=== PATIENT | female | born 1940 | race African-American/Black ===

== ENCOUNTER 2016-04-19 17:18 | Emergency (ER) | payer MEDICARE ==
[~2016-04-19] VITALS: Ht 165.1 cm; Wt 72.6 kg
[~2016-04-19 17:18] MED LIST: NAPR500T PO; TRAM-29 PO
[2016-04-19] MEDS ORDERED: KETOROLAC TROMETHAMINE 30 MG/ML SYRINGE. IV ONE (19:00)
--- NOTE | 2016-04-19 19:16 | PHYS DOC ---
Past Medical History Past Medical History: Arthritis, Hypertension Past Surgical History: Hysterectomy Alcohol Use: None Drug Use: None Adult General Chief Complaint Chief Complaint: WEAKNESS/GENERALIZED HPI HPI Patient is a 76 year old female brought to the ED by her daughter from the shelter home where she lives with several complaints. She's been sick for 1- 2 days. She's had generalized weakness. She has a headache which is unusual for her. Her head hurt on the right side of her head and down into her right ear. She denies cough, nausea or vomiting, diarrhea. She denies any recent head injury. She does not take blood thinners. She is in good general health. Her primary care doctor is Anshu Martinez. Review of Systems Review of Systems Constitutional: Gen. malaise and weakness, she was not aware that she had a fever Eyes: Denies change in visual acuity, redness, or eye pain [] HENT: Denies nasal congestion or sore throat , complains of right ear pain that is better now Respiratory: Denies cough or shortness of breath [] Cardiovascular: Denies chest pain GI: Denies abdominal pain, nausea, vomiting, bloody stools or diarrhea [] : Denies dysuria or hematuria [] Musculoskeletal: Denies back pain or joint pain [] Integument: Denies rash or skin lesions [] Neurologic: As in history of present illness Current Medications Current Medications Current Medications Medications (Trade) Dose Ordered Sig/Fox Start Time Stop Time Status Last Admin Dose Admin Ketorolac Tromethamine (Toradol) 30 mg 1X ONCE 04/19/16 19:00 04/19/16 19:01 DC 04/19/16 19:31 30 MG Oseltamivir Phosphate (Tamiflu) 75 mg 1X STAT 04/19/16 20:19 04/19/16 20:22 DC 04/19/16 20:49 75 MG Allergies Allergies Allergies Coded Allergies Type Severity Reaction Last Updated Verified No Known Drug Allergies 01/31/14 No Physical Exam Physical Exam Constitutional: Well developed, well nourished, no acute distress, non-toxic appearance. Alert, mentating normally. Temp 100.2. HENT: Normocephalic, atraumatic, bilateral external ears normal, bilateral TMs without redness or bulging, nose normal. [] Eyes: conjunctiva normal, no discharge. [] Neck: Normal range of motion, no stridor. [] Cardiovascular:Heart rate regular rhythm, no murmur [] Lungs & Thorax: Bilateral breath sounds clear to auscultation [] Abdomen: Bowel sounds normal, soft, no tenderness, no masses, no pulsatile masses. [] Skin: Warm, dry, no erythema, no rash. [] Extremities: No tenderness, no cyanosis, no clubbing, ROM intact, no edema. [] Neurologic: Alert and oriented X 3, normal motor function, normal sensory function, no focal deficits noted. [] Current Patient Data Vital Signs Vital Signs Date Time Temp Pulse Resp B/P Pulse Ox O2 Delivery O2 Flow Rate FiO2 04/19/16 20:45 88 16 138/76 97 Room Air 04/19/16 18:47 100.2 100.2 Lab Values Laboratory Tests Test 04/19/16 19:19 04/19/16 19:25 04/19/16 19:35 Urine Collection Type Unknown Urine Color Yellow Urine Clarity Clear Urine pH 6.0 Urine Specific [place] 1.010 Urine Protein Negativemg/dL (NEG-TRACE) Urine Glucose (UA) Negativemg/dL (NEG) Urine Ketones (Stick) 15mg/dL (NEG) Urine Blood Trace (NEG) Urine Nitrite Negative (NEG) Urine Bilirubin Negative (NEG) Urine Urobilinogen Dipstick 0.2mg/dL (0.2 mg/dL) Urine Leukocyte Esterase Negative (NEG) Urine RBC Occ/HPF (0-2) Urine WBC 0/HPF (0-4) Urine Squamous Epithelial Cells Occ/LPF Urine Bacteria 0/HPF (0-FEW) Influenza Type A Antigen Positive (NEGATIVE) Influenza Type B Antigen Negative (NEGATIVE) White Blood Count 3.0x10^3/uL (4.0-11.0) L Red Blood Count 4.95x10^6/uL (3.50-5.40) Hemoglobin 12.4g/dL (12.0-15.5) Hematocrit 39.2% (36.0-47.0) Mean Corpuscular Volume 79fL (79-100) Mean Corpuscular Hemoglobin 25pg (25-35) Mean Corpuscular Hemoglobin Concent 32g/dL (31-37) Red Cell Distribution Width 14.8% (11.5-14.5) H Platelet Count 214x10^3/uL (140-400) Neutrophils (%) (Auto) 60% (31-73) Lymphocytes (%) (Auto) 24% (24-48) Monocytes (%) (Auto) 15% (0-9) H Eosinophils (%) (Auto) 1% (0-3) Basophils (%) (Auto) 0% (0-3) Neutrophils # (Auto) 1.8x10^3uL (1.8-7.7) Lymphocytes # (Auto) 0.7x10^3/uL (1.0-4.8) L Monocytes # (Auto) 0.4x10^3/uL (0.0-1.1) Eosinophils # (Auto) 0.0x10^3/uL (0.0-0.7) Basophils # (Auto) 0.0x10^3/uL (0.0-0.2) Sodium Level 139mmol/L (136-145) Potassium Level 4.3mmol/L (3.5-5.1) Chloride Level 99mmol/L (98-107) Carbon Dioxide Level 30mmol/L (21-32) Anion Gap 10 (6-14) Blood Urea Nitrogen 6mg/dL (7-20) L Creatinine 1.0mg/dL (0.6-1.0) Estimated GFR (Cockcroft-Gault) 65.6 BUN/Creatinine Ratio 6 (6-20) Glucose Level 98mg/dL (70-99) Calcium Level 9.7mg/dL (8.5-10.1) Total Bilirubin 0.4mg/dL (0.2-1.0) Aspartate Amino Transferase (AST) 31U/L (15-37) Alanine Aminotransferase (ALT) 17U/L (14-59) Alkaline Phosphatase 63U/L (46-116) Total Protein 8.6g/dL (6.4-8.2) H Albumin 3.9g/dL (3.4-5.0) Albumin/Globulin Ratio 0.8 (1.0-1.7) L Laboratory Tests 04/19/16 19:35 Laboratory Tests 04/19/16 19:35 EKG EKG 12-lead EKG read by me. Sinus rhythm. Heart rate 92. There are no acute ST or T wave changes indicative of ischemia or infarction. No STEMI. 1846 [] Radiology/Procedures Radiology/Procedures One view portable chest x-ray read by me. No acute findings. Elevated left hemidiaphragm. CT scan of the head read by the radiologist. No acute findings. [] Course & Med Decision Making Course & Med Decision Making Pertinent Labs and Imaging studies reviewed. (See chart for details) 76-year-old female with generalized symptoms found to have a low-grade temp of 100.2. She does have a headache since unusual for her, no stiff neck. We will check a CT scan of her head and some labs. She is agreeable to that plan. Patient was positive for influenza. She was given her first dose of Tamiflu here in the ED since her symptoms just started within the last 24-36 hours. Prescription for Tamiflu for 5 days. She is to stay at home to avoid spreading it, plenty of fluids. [] Dragon Disclaimer Dragon Disclaimer This electronic medical record was generated, in whole or in part, using a voice recognition dictation system. Departure Departure Impression: Primary Impression: Influenza Disposition: 01 HOME, SELF-CARE Condition: STABLE Referrals: ANSHU MARTINEZ MD (PCP) Patient Instructions: Influenza A (H1N1) Additional Instructions: Stay at home to avoid spreading the influenza. Drink plenty of fluids, rest. You had your first dose of Tamiflu in the emergency department. Starting tomorrow morning, take one every 12 hours for 5 days. Scripts Oseltamivir Phosphate (Tamiflu)75 Mg Capsule1 Cap PO BID #10 CAP For influenza Prov:IRENA MADRID MD 04/19/16 IRENA MADRID MD Apr 19, 2016 19:16
--- NOTE | 2016-04-19 19:41 | RAD ---
PQRS STATEMENT One or more of the following individualized dose reduction techniques were utilized for this study: 1.Automated exposure control 2.Adjustment of the mA and/or kV according to patient size 3.Use of iterative reconstruction technique CT HEAD Indication: HEADACHE X 1 DAYS, HX HTN, NO PRIORS Reason: headache / Spl. Instructions: / History: COMPARISON: None TECHNIQUE: 5 mm contiguous axial images were obtained from the skull base to the vertex in both bone and soft tissue algorithm. FINDINGS: No abnormal attenuation within the brain parenchyma. No evidence of acute intracranial hemorrhage. No extra-axial fluid collections. No mass effect or midline shift.Ventricular size is appropriate. Basal cisterns are patent. No fractures identified. Globes and orbits are within normal limits. Paranasal sinuses and mastoid air cells are clear. IMPRESSION: No acute intracranial abnormality. Electronically signed by: Dorian Bejarano (Apr 19, 2016 19:39:55)
[2016-04-19 19:43] LABS: BILIRUBIN,URINE NEGATIVE (NEG); GLUCOSE,URINE NEGATIVE (NEG); NITRITE,URINE NEGATIVE (NEG); PROTEIN,URINE NEGATIVE (NEG-TRACE); UROBILINOGEN,URINE 0.2 mg/dL (0.2 mg/dL)
[2016-04-19 19:56] LABS: BASO % 0 % (0-3); EOS % 1 % (0-3); HEMATOCRIT 39.2 % (36.0-47.0); HEMOGLOBIN 12.4 g/dL (12.0-15.5); LYMPH # 0.7 x10^3/uL (1.0-4.8); LYMPH % 24 % (24-48); MEAN CORPUSCULAR HEMOGLOBIN 25 pg (25-35); MEAN CORPUSCULAR HGB CONC 32 g/dL (31-37); MEAN CORPUSCULAR VOLUME 79 fL (79-100); MONO % 15 % (0-9); NEUT % 60 % (31-73); PLATELET COUNT 214 x10^3/uL (140-400); RED BLOOD COUNT 4.95 x10^6/uL (3.50-5.40); RED CELL DISTRIBUTION WIDTH 14.8 % (11.5-14.5)
[2016-04-19 19:59] LABS: OBC FLU VALID
[2016-04-19 20:04] LABS: BACTERIA,URINE 0 /HPF (0-FEW); RBC,URINE OCC /HPF (0-2); SQUAMOUS EPITHELIAL CELL,UR OCC /LPF; WBC,URINE 0 /HPF (0-4)
[2016-04-19 20:17] LABS: CALCIUM 9.7 mg/dL (8.5-10.1); GFR 65.6; POTASSIUM 4.3 mmol/L (3.5-5.1)
[2016-04-19] MEDS ORDERED: OSELTAMIVIR 75 MG CAPSULE PO STA (20:19)
[2016-04-19 20:28] LABS: ALBUMIN 3.9 g/dL (3.4-5.0); ALBUMIN/GLOBULIN RATIO 0.8 (1.0-1.7); TOTAL BILIRUBIN 0.4 mg/dL (0.2-1.0); TOTAL PROTEIN 8.6 g/dL (6.4-8.2)
[2016-04-19] MEDS ORDERED: OSEL75CA PO (20:37)
[2016-04-19 20:45] VITALS: BP 138/76
--- NOTE | 2016-04-20 06:24 | EKG ---
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
--- NOTE | 2016-04-20 07:53 | RAD ---
Portable AP upright view CXR: Clinical indications: Malaise. Fever. Hypertension. Comparison: April 18, 2007. Findings: Chronic elevation of the left hemidiaphragm is seen. No acute lung infiltrate or pleural effusion or pulmonary edema or lung mass or pneumothorax is seen. The heart size, pulmonary vasculature, mediastinum and both mesfin are unremarkable. Impression: No acute radiographic abnormality is seen.
== END 2016-04-19 20:58 | disposition home or self-care (01) ==
LOC: ER 17:18
DX: J11.1 Influenza due to unidentified influenza virus with other respiratory manifestations (principal); I10 Essential (primary) hypertension; M19.90 Unspecified osteoarthritis, unspecified site; Z90.710 Acquired absence of both cervix and uterus
CPT/HCPCS: 36415; 70450; 71010; 80053; 81001; 85027; 87804; 93005; 96374; 99285; J1885

== ENCOUNTER 2017-03-11 11:36 | Emergency (ER) | payer MEDICARE ==
[2017-03-11 12:23] LABS: BILIRUBIN,URINE NEGATIVE (NEG); CLARITY,URINE CLEAR; COLOR,URINE YELLOW; GLUCOSE,URINE NEGATIVE (NEG); NITRITE,URINE NEGATIVE (NEG); PROTEIN,URINE NEGATIVE (NEG-TRACE); UROBILINOGEN,URINE 0.2 mg/dL (0.2 mg/dL)
[2017-03-11 12:43] LABS: BACTERIA,URINE 0 /HPF (0-FEW); RBC,URINE 0 /HPF (0-2); SQUAMOUS EPITHELIAL CELL,UR FEW /LPF
[2017-03-11 12:51] LABS: ADD MAN DIFF? NO
[2017-03-11] MEDS: fentaNYL PF VIAL 100 MCG/2 ML VIAL IV (12:54)
[2017-03-11 12:55] LABS: BASO % 1 % (0-3); EOS % 1 % (0-3); HEMATOCRIT 39.7 % (36.0-47.0); HEMOGLOBIN 12.5 g/dL (12.0-15.5); LYMPH # 1.8 x10^3/uL (1.0-4.8); LYMPH % 36 % (24-48); MEAN CORPUSCULAR HEMOGLOBIN 25 pg (25-35); MEAN CORPUSCULAR HGB CONC 32 g/dL (31-37); MEAN CORPUSCULAR VOLUME 79 fL (79-100); MONO # 0.4 x10^3/uL (0.0-1.1); MONO % 8 % (0-9); NEUT # 2.6 x10^3uL (1.8-7.7); NEUT % 54 % (31-73); PLATELET COUNT 231 x10^3/uL (140-400); RED BLOOD COUNT 5.01 x10^6/uL (3.50-5.40); RED CELL DISTRIBUTION WIDTH 14.3 % (11.5-14.5); WHITE BLOOD COUNT 4.9 x10^3/uL (4.0-11.0)
[2017-03-11 13:20] LABS: ANION GAP 10 (6-14); BLOOD UREA NITROGEN 6 mg/dL (7-20); BUN/CREATININE RATIO 7 (6-20); CALCIUM 9.4 mg/dL (8.5-10.1); CARBON DIOXIDE 30 mmol/L (21-32); CHLORIDE 102 mmol/L (98-107); CREATININE 0.9 mg/dL (0.6-1.0); GFR 74.1; GLUCOSE 98 mg/dL (70-99); POTASSIUM 4.4 mmol/L (3.5-5.1); SODIUM 142 mmol/L (136-145)
[2017-03-11 13:26] LABS: ALBUMIN 3.8 g/dL (3.4-5.0); ALBUMIN/GLOBULIN RATIO 0.9 (1.0-1.7); ALK PHOS 70 U/L (46-116); ALT (SGPT) 19 U/L (14-59); AST (SGOT) 16 U/L (15-37); LIPASE 413 U/L (73-393); TOTAL BILIRUBIN 0.4 mg/dL (0.2-1.0); TOTAL PROTEIN 8.2 g/dL (6.4-8.2)
[2017-03-11] MEDS ORDERED: IOHEXOL 300 MG/ML 100ML VIAL. (13:42)
[2017-03-11] MEDS ORDERED: CONTRAST GIVEN MC (13:45)
[2017-03-11] MEDS: IOHEXOL 300 MG/ML 100ML VIAL. IV (13:47)
== END 2017-03-11 14:53 | disposition home or self-care (01) ==
LOC: ER 11:36
DX: M25.552 Pain in left hip (principal); R10.32 Left lower quadrant pain; M17.9 Osteoarthritis of knee, unspecified; I10 Essential (primary) hypertension; Z90.710 Acquired absence of both cervix and uterus
CPT/HCPCS: 36415; 73502; 74177; 80053; 81001; 83690; 85025; 87086; 96374; 99285-25; J3010; Q9967

== ENCOUNTER 2018-06-07 11:17 | Emergency (ER) | payer OTHER, MEDICARE ==
[~2018-06-07] VITALS: Ht 167.6 cm; Wt 73.5 kg
[~2018-06-07 11:17] MED LIST changes: +NAPR-683 PO; +NAPR-695 PO; -NAPR500T PO; +OSEL75CA PO; -TRAM-29 PO; +TRAM-48 PO
[2018-06-07 11:36] VITALS: BP 141/85
[2018-06-07] MEDS ORDERED: CLOT15CR5 TP (11:48)
[2018-06-07] MEDS ORDERED: MUPI22OI2 TP (11:48)
--- NOTE | 2018-06-07 11:48 | PHYS DOC ---
Past Medical History Past Medical History: Arthritis, Hypertension Past Surgical History: Hysterectomy Alcohol Use: None Drug Use: None Adult General Chief Complaint Chief Complaint: SKIN PROBLEM HPI HPI Patient is a 78 year old female who presents with a rash on both sides of her neck. This has been present for the past 2 months. No improvement with over-the- counter medicine such as cortisone. Patient has not seen her primary care physician for this. There is no itching. No fever. No recent changes in weight, nothing seems to make the discomfort or the rash better or worse. Discomfort is 0-1.[] Review of Systems Review of Systems Constitutional: Denies fever or chills [] Eyes: Denies change in visual acuity, redness, or eye pain [] HENT: Denies nasal congestion or sore throat [] Respiratory: Denies cough or shortness of breath [] Cardiovascular: No chest pain or palpitations[] GI: Denies abdominal pain, nausea, vomiting, bloody stools or diarrhea [] : Denies dysuria or hematuria [] Musculoskeletal: Denies back pain or joint pain [] Integument: See history of present illness[] Neurologic: Denies headache, focal weakness or sensory changes [] Endocrine: Denies polyuria or polydipsia [] All other systems were reviewed and found to be within normal limits, except as documented in this note. Allergies Allergies Allergies Coded Allergies Type Severity Reaction Last Updated Verified No Known Drug Allergies 01/31/14 No Physical Exam Physical Exam Constitutional: Well developed, well nourished, no acute distress, non-toxic appearance. [] HENT: Normocephalic, atraumatic, bilateral external ears normal, oropharynx moist, no oral exudates, nose normal. [] Eyes: PERRLA, EOMI, conjunctiva normal, no discharge. [] Neck: Normal range of motion, no tenderness, supple, no stridor. [] Cardiovascular:Heart rate regular rhythm, no murmur [] Lungs & Thorax: Bilateral breath sounds clear to auscultation [] Abdomen: Bowel sounds normal, soft, no tenderness, no masses, no pulsatile masses. [] Skin: Warm, dry, no erythema, dark rash on both sides of the neck as well as the posterior aspect. Less of it towards the anterior. There is no skin sloughing.. [] Back: No tenderness, no CVA tenderness. [] Extremities: No tenderness, no cyanosis, no clubbing, ROM intact, no edema. [] Neurologic: Alert and oriented X 3, normal motor function, normal sensory function, no focal deficits noted. [] Psychologic: Affect normal, judgement normal, mood normal. [] EKG EKG [] Radiology/Procedures Radiology/Procedures [] Course & Med Decision Making Course & Med Decision Making Pertinent Labs and Imaging studies reviewed. (See chart for details) Medical decision making: Patient with a rash on her neck that does not appear to be staph scalded skin syndrome, toxic epidermal necrolysis, Richey-Juan syndrome, nor other significant rash.[] Dragon Disclaimer Dragon Disclaimer This electronic medical record was generated, in whole or in part, using a voice recognition dictation system. Departure Departure Impression: Primary Impression: Rash and nonspecific skin eruption Disposition: 01 HOME, SELF-CARE Condition: IMPROVED Referrals: GUEVARA RUBIO MD (PCP) Follow-up in 2 days Patient Instructions: Rash Additional Instructions: Follow-up with your doctor in 2 days. Apply the medication as prescribed. Return to the ER if worsening rash, difficulty breathing, or any other concerns. Scripts Mupirocin (MUPIROCIN OINTMENT) 22 Gm Oint...g. 1 SEUN TP TID for WOUND CARE, #1 TUBE Prov: AYDEN GARNER DO 06/07/18 Clotrimazole/Betamethasone Dip (CLOTRIMAZOLE-BETAMETHASONE CRM) 15 Gm Cream..g. 1 SEUN TP BID, #30 GM 0 Refills Prov: AYDEN GARNER DO 06/07/18 AYDEN GARNER DO Jun 07, 2018 11:48
== END 2018-06-07 12:00 | disposition home or self-care (01) ==
LOC: ER 11:17
DX: R21 Rash and other nonspecific skin eruption (principal); I10 Essential (primary) hypertension
CPT/HCPCS: 99283

== ENCOUNTER → 2018-06-25 | Outpatient (CLI) | payer MEDICARE, OTHER ==
[2018-06-07 11:36] VITALS: BP 141/85
[~2018-06-25] MED LIST changes: +CLOT15CR5 TP; +MUPI22OI2 TP
--- NOTE | 2018-06-26 09:09 | RAD ---
DATE: 06/25/2018 EXAM: MAMMO DAYA SCREENING BILATERAL HISTORY: Routine screening COMPARISON: None available This study was interpreted with the benefit of Computerized Aided Detection (CAD). Breast Density: FATTY The breast parenchyma is primarily fatty replaced. Breast parenchyma level density A. FINDINGS: 2-D and 3-D tomosynthesis imaging was performed in CC and MLO projections. There is a smooth 5.7 mm nodule in the medial retroareolar region at 3:00 on the right as best seen on CC tomosynthesis images #21. No spiculated mass or architectural distortion is evident. Scattered benign type calcifications are present in both breasts. No suspicious microcalcifications are evident. IMPRESSION: Small right breast nodule. Sonographic evaluation is suggested. BI-RADS CATEGORY: 0 INCOMPLETE: NEEDS ADDITIONAL IMAGING EVALUATION AND/OR PRIOR MAMMOGRAMS FOR COMPARISON. RECOMMENDED FOLLOW-UP: ADD ADDITIONAL IMAGING PQRS compliance statement: Patient information was entered into a reminder system with a target due date for the next mammogram. Mammography is a sensitive method for finding small breast cancers, but it does not detect them all and is not a substitute for careful clinical examination. A negative mammogram does not negate a clinically suspicious finding and should not result in delay in biopsying a clinically suspicious abnormality. "Our facility is accredited by the [employer] Mammography Program."
== END | disposition home or self-care (01) ==
LOC: MAMMO 13:35
PROVIDERS: ATTEND Internal Medicine
DX: Z12.31 Encounter for screening mammogram for malignant neoplasm of breast (principal); N63.12 Unspecified lump in the right breast, upper inner quadrant
CPT/HCPCS: 77063; 77067

== ENCOUNTER → 2018-07-02 | Outpatient (CLI) | payer OTHER ==
[2018-06-07 11:36] VITALS: BP 141/85
--- NOTE | 2018-07-02 17:57 | RAD ---
Examination: BREAST RIGHT History: Abnormal mammogram Comparison/Correlation: 06/25/2018 screening mammographic exam Findings: At the right breast 2:00 to 3:00 region, there is a hypoechoic well-circumscribed mass measuring 0.6 cm x 0.6 cm x 0.5 cm tall and this is located 1 cm from the nipple. No flow evident within it. Mild subareolar ductal ectasia on the right is present. Right adnexal is unremarkable. Impression: BI-RADS Category 3-probably benign. Six-month right breast mammographic follow-up and right breast ultrasound follow-up is recommended to assess stability. Electronically signed by: Curtis Jerome MD (07/02/2018 5:55 PM) [facility]
== END | disposition home or self-care (01) ==
LOC: US 10:51
PROVIDERS: ATTEND Internal Medicine
DX: N63.12 Unspecified lump in the right breast, upper inner quadrant (principal)
CPT/HCPCS: 76641

== ENCOUNTER 2019-03-18 10:08 | Emergency (ER) | payer BC, OTHER ==
[~2019-03-18] VITALS: Ht 165.1 cm; Wt 72.6 kg
[2019-03-18 12:37] LABS: BASO % 1 % (0-3); EOS % 1 % (0-3); HEMATOCRIT 40.2 % (36.0-47.0); LYMPH # 1.4 x10^3/uL (1.0-4.8); LYMPH % 30 % (24-48); MEAN CORPUSCULAR HEMOGLOBIN 26 pg (25-35); MEAN CORPUSCULAR HGB CONC 32 g/dL (31-37); MEAN CORPUSCULAR VOLUME 79 fL (79-100); MONO # 0.3 x10^3/uL (0.0-1.1); MONO % 7 % (0-9); NEUT # 2.9 x10^3/uL (1.8-7.7); NEUT % 62 % (31-73); PLATELET COUNT 233 x10^3/uL (140-400); RED BLOOD COUNT 5.07 x10^6/uL (3.50-5.40); RED CELL DISTRIBUTION WIDTH 14.3 % (11.5-14.5); WHITE BLOOD COUNT 4.6 x10^3/uL (4.0-11.0)
--- NOTE | 2019-03-18 12:55 | PHYS DOC ---
Past Medical History Past Medical History: Arthritis, Hypertension Past Surgical History: Hysterectomy Alcohol Use: None Drug Use: None Adult General Chief Complaint Chief Complaint: HEADACHE HPI HPI Patient is a 78 year old female who presents with states 2 days ago she was in having a pressure and throbbing headache that is on the left forehead that wraps around to the back half of the left head. She states it comes and goes. She states she took Excedrin yesterday and usually works for her headache but it did not work this time. She states that this does feel like her normal headache and does not feel any worse than usual. Patient's rating her pain a 9 out of 10. She states that she did take her hypertensive medication and she is hypertensive in the emergency room. Patient states she cannot remember the name of her hypertensive medication she took. She denies any other history otherwise and arthritis. She denies blood thinner. She denies vision changes, dizziness, nausea, vomiting, syncope, diarrhea, fever, recent illness, dysuria, chest pain, shortness of breath, numbness or tingling, weakness. Review of Systems Review of Systems Neurologic: headache, denies focal weakness or sensory changes [] All other systems were reviewed and found to be within normal limits, except as documented in this note. Current Medications Current Medications Current Medications Medications (Trade) Dose Ordered Sig/Fox Start Time Stop Time Status Last Admin Dose Admin Ketorolac Tromethamine (Toradol 30mg Vial) 30 mg 1X ONCE 03/18/19 13:00 03/18/19 13:01 DC 03/18/19 13:27 30 MG Prochlorperazine Edisylate (Compazine) 10 mg 1X ONCE 03/18/19 13:00 03/18/19 13:01 DC 03/18/19 13:27 10 MG Allergies Allergies Allergies Coded Allergies Type Severity Reaction Last Updated Verified No Known Drug Allergies 01/31/14 No Physical Exam Physical Exam Constitutional: Well developed, well nourished, no acute distress, non-toxic appearance. [] HENT: Normocephalic, atraumatic, bilateral external ears normal, oropharynx moist, no oral exudates, nose normal. [] Eyes: PERRLA, EOMI, conjunctiva normal, no discharge. [] Neck: Normal range of motion, no tenderness, supple, no stridor. [] Cardiovascular:Heart rate regular rhythm, no murmur [] Lungs & Thorax: Bilateral breath sounds clear to auscultation [] Abdomen: Bowel sounds normal, soft, no tenderness, no masses, no pulsatile masses. [] Skin: Warm, dry, no erythema, no rash. [] Back: No tenderness, no CVA tenderness. [] Extremities: No tenderness, no cyanosis, no clubbing, ROM intact, no edema. [] Neurologic: Alert and oriented X 3, normal motor function, normal sensory function, no focal deficits noted. [] Psychologic: Affect normal, judgement normal, mood normal. Normal Physical Exam [] Current Patient Data Vital Signs Vital Signs Date Time Temp Pulse Resp B/P (MAP) Pulse Ox O2 Delivery O2 Flow Rate FiO2 03/18/19 11:53 98.0 72 18 175/94 (121) 98 Room Air 98.0 Lab Values Laboratory Tests Test 03/18/19 12:15 White Blood Count 4.6 x10^3/uL (4.0-11.0) Red Blood Count 5.07 x10^6/uL (3.50-5.40) Hemoglobin 13.0 g/dL (12.0-15.5) Hematocrit 40.2 % (36.0-47.0) Mean Corpuscular Volume 79 fL (79-100) Mean Corpuscular Hemoglobin 26 pg (25-35) Mean Corpuscular Hemoglobin Concent 32 g/dL (31-37) Red Cell Distribution Width 14.3 % (11.5-14.5) Platelet Count 233 x10^3/uL (140-400) Neutrophils (%) (Auto) 62 % (31-73) Lymphocytes (%) (Auto) 30 % (24-48) Monocytes (%) (Auto) 7 % (0-9) Eosinophils (%) (Auto) 1 % (0-3) Basophils (%) (Auto) 1 % (0-3) Neutrophils # (Auto) 2.9 x10^3/uL (1.8-7.7) Lymphocytes # (Auto) 1.4 x10^3/uL (1.0-4.8) Monocytes # (Auto) 0.3 x10^3/uL (0.0-1.1) Eosinophils # (Auto) 0.0 x10^3/uL (0.0-0.7) Basophils # (Auto) 0.0 x10^3/uL (0.0-0.2) Sodium Level 139 mmol/L (136-145) Potassium Level 4.2 mmol/L (3.5-5.1) Chloride Level 102 mmol/L (98-107) Carbon Dioxide Level 28 mmol/L (21-32) Anion Gap 9 (6-14) Blood Urea Nitrogen 7 mg/dL (7-20) Creatinine 0.9 mg/dL (0.6-1.0) Estimated GFR (Cockcroft-Gault) 73.7 BUN/Creatinine Ratio 8 (6-20) Glucose Level 94 mg/dL (70-99) Calcium Level 9.3 mg/dL (8.5-10.1) Total Bilirubin 0.4 mg/dL (0.2-1.0) Aspartate Amino Transferase (AST) 21 U/L (15-37) Alanine Aminotransferase (ALT) 16 U/L (14-59) Alkaline Phosphatase 64 U/L (46-116) Troponin I Quantitative < 0.017 ng/mL (0.000-0.055) Total Protein 7.5 g/dL (6.4-8.2) Albumin 4.0 g/dL (3.4-5.0) Albumin/Globulin Ratio 1.1 (1.0-1.7) Laboratory Tests 03/18/19 12:15 Laboratory Tests 03/18/19 12:15 EKG EKG Sinus Rhythm and no STEMI[] Interpretation Time: [address] Becerra Radiology/Procedures Radiology/Procedures [] Course & Med Decision Making Course & Med Decision Making She moves all extremities normally with normal strength. Speaks in full clear sentences. Skin pink warm and dry. Alert and oriented. Ambulatory with a steady gait. Lungs are clear to auscultation all lobes. Patient is hypertensive in the 170s. PERRLA. Abdomen soft and nontender. No extremity edema. Nurse states to me that the patient left AMA and states she is tired of waiting and she is cold. Nurse states patient was up and walking and stable. Patients results of CT are not back. Dragon Disclaimer Dragon Disclaimer This electronic medical record was generated, in whole or in part, using a voice recognition dictation system. NIHSS Stroke Scale NIH Stroke Scale: NIH Stroke Scale Response (Comments) Value Level of Consciousness: 0 Alert/Responsive 0 LOC Questions: 0 Answers both correctly 0 LOC Commands: 0 Performs both tasks 0 Best Gaze: 0 Normal 0 Visual: 0 No visual loss 0 Facial Palsy: 0 Normal, symmetrical 0 Motor - Left Arm 0 No drift 0 Motor - Right Arm 0 No drift 0 Motor - Left Leg 0 No drift 0 Motor: Right Leg 0 No drift 0 Limb Ataxia: 0 Absent 0 Sensory: 0 No loss 0 Best Language: 0 Normal 0 Dysathria: 0 Normal 0 Extinction and Inattention: 0 Normal 0 Total 0 Departure Departure Impression: Primary Impression: Headache Disposition: 07 AGAINST MEDICAL ADVICE Condition: STABLE Referrals: GUEVARA RUBIO MD (PCP) Problem Qualifiers Primary Impression: Headache Headache type: unspecified Headache chronicity pattern: acute headache Intractability: not intractable Qualified Codes: R51 - Headache ROSI ROGERS APRN Mar 18, 2019 12:54
[2019-03-18 12:57] LABS: CALCIUM 9.3 mg/dL (8.5-10.1); CREATININE 0.9 mg/dL (0.6-1.0); GFR 73.7; POTASSIUM 4.2 mmol/L (3.5-5.1)
[2019-03-18 13:03] LABS: ALBUMIN/GLOBULIN RATIO 1.1 (1.0-1.7); TOTAL BILIRUBIN 0.4 mg/dL (0.2-1.0); TOTAL PROTEIN 7.5 g/dL (6.4-8.2)
[2019-03-18 13:26] VITALS: BP 171/102
[2019-03-18] MEDS: KETOROLAC 30 MG/ML VIAL. IVP ONE (13:27)
[2019-03-18] MEDS: PROCHLORPERAZINE 10 MG/2 ML VIAL. IV ONE (13:27)
--- NOTE | 2019-03-18 14:07 | RAD ---
EXAM: Head CT without contrast. HISTORY: Headache. TECHNIQUE: Computed tomographic images of the head were obtained without contrast. *One or more of the following individualized dose reduction techniques were utilized for this examination: 1. Automated exposure control. 2. Adjustment of the mA and/or kV according to patient size. 3. Use of iterative reconstruction technique. COMPARISON: 04/19/2016. FINDINGS: There is no acute or subacute extra-axial or intraparenchymal hemorrhage. There is no mass effect or midline shift. There is no hydrocephalus. There are areas of decreased attenuation within the cerebral white matter, nonspecific and likely related to chronic small vessel disease. There is cerebral volume loss. No orbital mass is seen. There is slight medial deviation of the left lamina papyracea which may be developmental or due to a chronic fracture. There is degenerative change involving the left temporomandibular joint. IMPRESSION: 1. No acute intracranial finding. 2. Bilateral cerebral white matter changes, likely due to chronic small vessel disease. 3. Cerebral volume loss. Electronically signed by: Marisabel Villasenor MD (03/18/2019 2:04 PM) [place] [id number]
--- NOTE | 2019-03-18 15:03 | EKG ---
[facility] [address] [place] [address] Test Date: 2019-03-18 Test Time: 13:32:26 Pat Name: DANIELA HIGH Department: Room: Gender: F Material Controller: : 1940 Requested By: ROSI ROGERS Order Number: [id number] Reading MD: Measurements Intervals [place] Rate: 63 P: 28 SD: 170 QRS: 6 QRSD: 84 T: 46 QT: 422 QTc: 435 Interpretive Statements SINUS RHYTHM LEFT ATRIAL ABNORMALITY ABNORMAL ECG RI6.01 No previous ECG available for comparison
== END 2019-03-18 14:03 | disposition left against medical advice (07) ==
LOC: ER 10:08
DX: R51 Headache (principal); I10 Essential (primary) hypertension
CPT/HCPCS: 36415; 70450; 80053; 84484; 85025; 93005; 96374; 96375; 99285; J0780; J1885